=== PATIENT | male | born 1950 | race Caucasian/White ===

== ENCOUNTER 2022-03-23 16:45 | Day surgery (SDCO) | payer OTHER ==
[~2022-03-23] VITALS: Ht 180 cm; Wt 83.0 kg
[2022-03-23 17:24] LABS: BASOPHIL 0.1 % (0-2); EOSINOPHIL 0.1 % (0-7); HCT 48.3 % (42.0-52.0); HGB 15.9 g/dl (13.2-18.0); LYMPHOCYTE 9.7 % (15-48); MCH 30.5 pg (25.0-31.0); MCHC 32.9 g/dL (32.0-36.0); MCV 92.5 fL (78.0-100.0); MONOCYTE 7.3 % (0-12); MPV 8.6 fL (6.0-9.5); NEUTROPHIL 82.4 % (41-80); NRBC 0; PLT 341 K/uL (150-400); RBC 5.22 M/uL (4.70-6.00); RDW 13.6 % (11.5-14.0); WBC 16.8 K/uL (4.0-10.5)
[2022-03-23 17:29] LABS: INR 1.04 (0.9-1.2); PROTHROMBIN TIME 13.3 SECONDS (11.9-13.9); PTT 30.5 SECONDS (24.9-34.6)
[2022-03-23 17:40] LABS: IRON % SATURATION 11.6 %SAT (20-50)
[2022-03-23 17:41] LABS: ALBUMIN 3.3 g/dL (3.4-5.0); BILIRUBIN - TOTAL 0.8 mg/dL (0.2-1.0); CREATININE 0.72 mg/dL (0.67-1.17); GLOBULIN (CALCULATION) 3.7 g/dL; MAGNESIUM 1.8 mg/dL (1.8-2.4); POTASSIUM 3.8 mmol/L (3.5-5.1)
[2022-03-23 17:44] LABS: LACTIC ACID 1.1 mmol/L (0.4-1.9)
[2022-03-23 19:18] LABS: BILIRUBIN NEGATIVE (NEGATIVE); BLOOD NEGATIVE Ery/uL (NEGATIVE); CLARITY CLEAR (CLEAR); COLOR YELLOW (YELLOW); GLUCOSE (U) 3+ mg/dL (NORMAL); LEUKOCYTES NEGATIVE Leu/uL (NEGATIVE); NITRITE NEGATIVE (NEGATIVE); PROTEIN NEGATIVE (NEGATIVE); UROBILINOGEN 0.2 mg/dL (0.2-1.0)
[2022-03-23] MEDS ORDERED: NEURONTIN300 MG PO (23:29)
[2022-03-23] MEDS ORDERED: JARDIANCE10 MG PO (23:30)
[2022-03-23] MEDS ORDERED: GLUCOTROL10 MG PO (23:30)
[2022-03-23] MEDS ORDERED: COREG 6.25MG6.25 MG PO (23:31)
[2022-03-23] MEDS ORDERED: PLAVIX75 MG PO (23:31)
[2022-03-23] MEDS ORDERED: CRESTOR40 MG PO (23:32)
[2022-03-23] MEDS ORDERED: PANTOPRAZOLE SO40 MG PO (23:33)
[2022-03-23] MEDS ORDERED: ASPIRIN EC81 MG PO (23:33)
[2022-03-23] MEDS ORDERED: CENTRAVITES 501 EACH PO (23:34)
[2022-03-23] MEDS ORDERED: GLUCOSAMINE CH PO (23:35)
[2022-03-23] MEDS ORDERED: HEALTHY EYES T1 EACH PO (23:35)
[2022-03-23] MEDS ORDERED: LOVAZA1 GM PO (23:36)
[2022-03-24 06:35] LABS: BASOPHIL 0.2 % (0-2); EOSINOPHIL 0.1 % (0-7); HCT 42.8 % (42.0-52.0); HGB 14.3 g/dl (13.2-18.0); LYMPHOCYTE 17.1 % (15-48); MCHC 33.4 g/dL (32.0-36.0); MCV 92.6 fL (78.0-100.0); MONOCYTE 8.5 % (0-12); MPV 8.6 fL (6.0-9.5); NEUTROPHIL 73.5 % (41-80); NRBC 0; PLT 311 K/uL (150-400); RBC 4.62 M/uL (4.70-6.00); RDW 13.9 % (11.5-14.0); WBC 17.9 K/uL (4.0-10.5)
[2022-03-24 06:57] LABS: BUN/CREAT RATIO (CALC) 20.5 RATIO; CREATININE 0.73 mg/dL (0.67-1.17); POTASSIUM 3.7 mmol/L (3.5-5.1)
[2022-03-25 06:41] LABS: BASOPHIL 0.2 % (0-2); EOSINOPHIL 0.2 % (0-7); HCT 38.9 % (42.0-52.0); HGB 12.9 g/dl (13.2-18.0); LYMPHOCYTE 18.2 % (15-48); MCH 31.3 pg (25.0-31.0); MCHC 33.2 g/dL (32.0-36.0); MCV 94.4 fL (78.0-100.0); MPV 8.8 fL (6.0-9.5); NEUTROPHIL 71.9 % (41-80); NRBC 0; PLT 268 K/uL (150-400); RBC 4.12 M/uL (4.70-6.00)
[2022-03-25 06:58] LABS: BUN/CREAT RATIO (CALC) 18.9 RATIO; CREATININE 0.74 mg/dL (0.67-1.17)
[2022-03-25 09:30] LABS: POTASSIUM 3.6 mmol/L (3.5-5.1)
[2022-03-25] MEDS ORDERED: NORCO 5-325 TA1 EACH PO (13:12)
[2022-03-25] MEDS ORDERED: ONDANSETRON HCL4 MG PO (14:54)
== END 2022-03-25 17:38 | disposition home or self-care (01) ==
LOC: FER 16:45 → FMS 19:46
PROVIDERS: Emergency Medicine; Internal Medicine; Nurse Practitioner Acute Care; ADMIT Internal Medicine
DX: K92.0 Hematemesis (principal); K44.9 Diaphragmatic hernia without obstruction or gangrene; K31.9 Disease of stomach and duodenum, unspecified; I95.9 Hypotension, unspecified; R09.02 Hypoxemia; J98.11 Atelectasis; D72.829 Elevated white blood cell count, unspecified; E61.1 Iron deficiency; E11.65 Type 2 diabetes mellitus with hyperglycemia; E11.42 Type 2 diabetes mellitus with diabetic polyneuropathy; I10 Essential (primary) hypertension; K21.9 Gastro-esophageal reflux disease without esophagitis; I25.2 Old myocardial infarction; F17.210 Nicotine dependence, cigarettes, uncomplicated; Z20.822 Contact with and (suspected) exposure to COVID-19; Z95.5 Presence of coronary angioplasty implant and graft; Z79.82 Long term (current) use of aspirin; Z79.84 Long term (current) use of oral hypoglycemic drugs; Z79.899 Other long term (current) drug therapy; Z88.5 Allergy status to narcotic agent; Z91.030 Bee allergy status
CPT/HCPCS: 36415; 71260; 80048; 80053; 81003; 83036; 83540; 83550; 83605; 83690; 83735; 84145; 84484; 85025; 85610; 85730; 93005; 94010; C9113; G0378; J0696; J1170; J2405; J2704; J3010; J3480; J7030; J7120; Q9967; U0002